=== PATIENT | female | born 1960 | race Caucasian/White ===

== ENCOUNTER 2022-07-03 18:09 | Inpatient (IN) | payer OTHER ==
[~2022-07-03] VITALS: Ht 170.2 cm; Wt 90.8 kg
[2022-07-03 21:00] VITALS: BP 96/49
[2022-07-03] MEDS ORDERED: ALBUTEROL SULFATE HFA 90 MCG/PUFF 8 GM INHALER IH PRN (21:45)
[2022-07-03] MEDS ORDERED: BENZONATATE 100 MG CAPSULE PO PRN (21:45)
[2022-07-03] MEDS: METOPROLOL TARTRATE 25 MG TABLET PO SCH ×2 (21:45→22:48)
[2022-07-03] MEDS ORDERED: INSULIN LISPRO 100 UNITS/ML SQ PRN (21:45)
[2022-07-03] MEDS ORDERED: DEXTROSE 50%-WATER 25 GM/50 ML SYRINGE IVP PRN (21:45)
[2022-07-03] MEDS ORDERED: SENNOSIDES 8.6 MG TABLET PO SCH (21:45)
[2022-07-03] MEDS ORDERED: MELATONIN 3 MG TABLET PO PRN (21:45)
[2022-07-03] MEDS ORDERED: ACETAMINOPHEN 325 MG TABLET PO PRN (21:45)
[2022-07-03] MEDS ORDERED: LUBIPROSTONE 8 MCG CAPSULE PO SCH (22:30)
[2022-07-03 22:40] VITALS: BP 97/67
[2022-07-03] MEDS: ETHYL ALCOHOL 62% ANTISEPTIC NASAL SANITIZER 0.6 ML AMPUL NASAL SCH (22:49)
[2022-07-03] MEDS: ATORVASTATIN CALCIUM 40 MG TABLET PO SCH (22:49)
[2022-07-03] MEDS: FUROSEMIDE 40 MG TABLET PO SCH (22:49)
[2022-07-03] MEDS: DOCUSATE SODIUM 100 MG CAPSULE PO SCH (22:49)
[2022-07-03] MEDS: BUDESONIDE/FORMOTEROL FUMARATE 80-4.5 MCG/PUFF 10.2 GM INHALER IH SCH (22:49)
[2022-07-03] MEDS: MELATONIN 5 MG TABLET PO SCH (23:37)
[2022-07-03 23:56] LABS: GLUCOMETER DEV NAME(LOC) 2WR.1C; GLUCOSE,POINT OF CARE 135 MG/DL (70-110)
[2022-07-04] MEDS ORDERED: LEVO125 PO (05:21)
[2022-07-04] MEDS ORDERED: METO25 PO (05:21)
[2022-07-04] MEDS ORDERED: CHOL500013 PO (05:21)
[2022-07-04] MEDS ORDERED: ALBU8HFA IH (05:21)
[2022-07-04] MEDS ORDERED: LUBI8CAP PO (05:21)
[2022-07-04] MEDS ORDERED: SPIR-37 PO (05:21)
[2022-07-04] MEDS ORDERED: DOCU-350 PO (05:21)
[2022-07-04] MEDS ORDERED: TURM500C4 PO (05:21)
[2022-07-04] MEDS ORDERED: ASPI-1450 PO (05:21)
[2022-07-04] MEDS ORDERED: MELA5TAB40 PO (05:21)
[2022-07-04] MEDS ORDERED: BENZ-70 PO (05:21)
[2022-07-04] MEDS ORDERED: DULO-113 PO (05:21)
[2022-07-04] MEDS ORDERED: LOVA20TA73 PO (05:21)
[2022-07-04] MEDS ORDERED: POTA8TAB71 PO (05:21)
[2022-07-04] MEDS ORDERED: FURO40 PO (05:21)
[2022-07-04] MEDS ORDERED: BUDE10.27 IH (05:21)
[2022-07-04] MEDS ORDERED: METF-1211 PO (05:21)
[2022-07-04] MEDS: LEVOTHYROXINE SODIUM 112 MCG TABLET PO SCH (06:34)
[2022-07-04 07:10] LABS: GLUCOMETER DEV NAME(LOC) 2WR.2B; GLUCOSE,POINT OF CARE 104 MG/DL (70-110)
[2022-07-04 07:15] LABS: BASOPHILS % (AUTO) 0.5 % (0.0-2.0); EOSINOPHILS % (AUTO) 3.9 % (1.0-6.0); HEMATOCRIT 34.6 % (36-46); LYMPHOCYTES # (AUTO) 2.1 K/uL (1.0-4.8); LYMPHOCYTES % (AUTO) 18.4 % (22.0-44.0); MEAN CORPUSCULAR HEMOGLOBIN 28.4 pg (26.0-34.0); MEAN CORPUSCULAR HGB CONC 31.9 G/dL (31.0-37.0); MEAN CORPUSCULAR VOLUME 89 fL (80-100); MONOCYTES # (AUTO) 0.8 K/uL (0.1-1.0); MONOCYTES % (AUTO) 7.6 % (2.0-9.0); NEUTROPHILS # (AUTO) 7.8 K/uL (1.8-7.7); NEUTROPHILS % (AUTO) 69.6 % (40.0-70.0); PLATELET COUNT (AUTO) 483 K/uL (150-450); RED BLOOD CELL COUNT(AUTO) 3.89 MIL/uL (4.00-5.20); RED CELL DISTRIBUTION WIDTH 15.9 % (11.5-14.5)
[2022-07-04 07:28] LABS: ALANINE AMINOTRANSFERASE 29 U/L (12-78); ALBUMIN 3.2 g/dL (3.4-5.0); ALKALINE PHOSPHATASE 99 U/L (46-116); ANION GAP 10 mmol/L (8-16); ASPARTATE AMINOTRANSFERASE 39 U/L (15-37); BILIRUBIN,TOTAL 0.4 mg/dL (0.1-1.0); CALCIUM, TOTAL 8.6 mg/dL (8.8-10.5); CARBON DIOXIDE 28 mmol/L (22-29); CHLORIDE 101 mmol/L (98-107); CREATININE 0.91 mg/dL (0.60-1.30); GLUCOSE,RANDOM 119 mg/dL (70-110); POTASSIUM 3.1 mmol/L (3.5-5.1); SODIUM SERUM 139 mmol/L (136-145); TOTAL PROTEIN, SERUM 7.9 g/dL (6.4-8.2); UREA NITROGEN, BLOOD 20 mg/dL (7-18)
[2022-07-04 07:30] LABS: GLOMERULAR FILTR. RATE CALC > 60 mL/min (>60)
[2022-07-04] MEDS ORDERED: LUBIPROSTONE 8 MCG CAPSULE PO SCH (07:30)
[2022-07-04 08:10] VITALS: BP 110/54
[2022-07-04] MEDS: ASPIRIN 81 MG CHEWABLE TABLET PO SCH (09:10)
[2022-07-04] MEDS: ETHYL ALCOHOL 62% ANTISEPTIC NASAL SANITIZER 0.6 ML AMPUL NASAL SCH ×2 (09:10→22:20)
[2022-07-04] MEDS: MetFORMIN HCL 500 MG TABLET PO SCH ×2 (09:10→17:21)
[2022-07-04] MEDS: BUDESONIDE/FORMOTEROL FUMARATE 80-4.5 MCG/PUFF 10.2 GM INHALER IH SCH ×2 (09:10→22:20)
[2022-07-04] MEDS: EMPAGLIFLOZIN 10 MG TABLET PO SCH (09:11)
[2022-07-04] MEDS: DOCUSATE SODIUM 100 MG CAPSULE PO SCH ×2 (09:11→21:00)
[2022-07-04] MEDS: DULoxetine HCL 60 MG CAPSULE PO SCH (09:11)
[2022-07-04] MEDS: FUROSEMIDE 40 MG TABLET PO SCH ×2 (09:12→22:24)
[2022-07-04] MEDS: POTASSIUM CHLORIDE 20 MEQ ER TABLET PO SCH (09:12)
[2022-07-04] MEDS: MULTIVITAMINS WITH MINERALS, THERAPEUTIC TABLET PO SCH (09:13)
[2022-07-04] MEDS: METOPROLOL TARTRATE 25 MG TABLET PO SCH ×3 (09:13→22:24)
[2022-07-04] MEDS: CLOPIDOGREL BISULFATE 75 MG TABLET PO SCH (09:13)
[2022-07-04] MEDS: CYANOCOBALAMIN 500 MCG TABLET PO SCH (09:14)
[2022-07-04] MEDS: PYRIDOXINE HCL 50 MG TABLET PO SCH (09:15)
[2022-07-04] MEDS: ASCORBIC ACID 500 MG TABLET PO SCH (09:15)
[2022-07-04] MEDS: ENOXAPARIN SODIUM 40 MG/0.4 ML PF SYRINGE SQ SCH (09:16)
[2022-07-04] MEDS: CHOLECALCIFEROL (VIT D3) 1,000 UNITS [25 MCG] TABLET PO SCH (09:16)
[2022-07-04] MEDS ORDERED: POTASSIUM CHLORIDE 20 MEQ ER TABLET PO ONE (10:15)
[2022-07-04 12:21] LABS: APPEARANCE,URINE CLEAR (CLEAR); BILIRUBIN,URINE NEGATIVE (NEGATIVE); GLUCOSE, URINE (UA) >=1000 mg/dL (NEGATIVE); KETONES,URINE NEGATIVE (NEGATIVE); LEUKOCYTE ESTERASE ,URINE NEGATIVE (NEGATIVE); NITRATE,URINE NEGATIVE (NEGATIVE); OCCULT BLOOD,URINE NEGATIVE (NEGATIVE); PROTEIN,URINE NEGATIVE (NEGATIVE); UROBILINOGEN,URINE <=1.0 mg/dL (<=1.0)
[2022-07-04 12:41] LABS: GLUCOMETER DEV NAME(LOC) 2WR.1C; GLUCOSE,POINT OF CARE 135 MG/DL (70-110)
[2022-07-04 12:42] LABS: BACTERIA,URINE None Seen /HPF (None Seen); RBC,URINE None Seen /HPF (0-2); WBC,URINE None Seen /HPF (0-5)
[2022-07-04 16:30] VITALS: BP 114/45
[2022-07-04] MEDS: LUBIPROSTONE 8 MCG CAPSULE PO SCH (17:22)
[2022-07-04 17:41] LABS: GLUCOMETER DEV NAME(LOC) 2WR.1C; GLUCOSE,POINT OF CARE 90 MG/DL (70-110)
[2022-07-04 19:00] VITALS: BP 91/41
[2022-07-04 21:00] VITALS: BP 119/66
[2022-07-04] MEDS ORDERED: MELATONIN 5 MG TABLET PO SCH (21:00)
[2022-07-04] MEDS: MELATONIN 5 MG TABLET PO SCH (22:20)
[2022-07-04] MEDS: ATORVASTATIN CALCIUM 40 MG TABLET PO SCH (22:21)
[2022-07-04 22:45] LABS: GLUCOMETER DEV NAME(LOC) 2WR.2B; GLUCOSE,POINT OF CARE 91 MG/DL (70-110)
[2022-07-05] MEDS: LEVOTHYROXINE SODIUM 112 MCG TABLET PO SCH (06:16)
[2022-07-05 06:26] LABS: GLUCOMETER DEV NAME(LOC) 2WR.2B; GLUCOSE,POINT OF CARE 87 MG/DL (70-110)
[2022-07-05 07:53] LABS: BASOPHILS % (AUTO) 0.9 % (0.0-2.0); EOSINOPHILS % (AUTO) 2.7 % (1.0-6.0); HEMOGLOBIN 10.5 g/dL (12.0-16.0); LYMPHOCYTES # (AUTO) 2.2 K/uL (1.0-4.8); LYMPHOCYTES % (AUTO) 24.2 % (22.0-44.0); MEAN CORPUSCULAR HEMOGLOBIN 29.2 pg (26.0-34.0); MEAN CORPUSCULAR HGB CONC 32.7 G/dL (31.0-37.0); MEAN CORPUSCULAR VOLUME 89 fL (80-100); MONOCYTES # (AUTO) 0.8 K/uL (0.1-1.0); MONOCYTES % (AUTO) 8.6 % (2.0-9.0); NEUTROPHILS # (AUTO) 5.9 K/uL (1.8-7.7); NEUTROPHILS % (AUTO) 63.6 % (40.0-70.0); PLATELET COUNT (AUTO) 477 K/uL (150-450); RED BLOOD CELL COUNT(AUTO) 3.58 MIL/uL (4.00-5.20); RED CELL DISTRIBUTION WIDTH 15.9 % (11.5-14.5)
[2022-07-05 08:01] LABS: CALCIUM, TOTAL 8.8 mg/dL (8.8-10.5); CREATININE 0.99 mg/dL (0.60-1.30); POTASSIUM 3.6 mmol/L (3.5-5.1)
[2022-07-05] MEDS: FUROSEMIDE 40 MG TABLET PO SCH ×3 (08:06→21:00)
[2022-07-05] MEDS: MetFORMIN HCL 500 MG TABLET PO SCH ×2 (08:07→17:03)
[2022-07-05] MEDS: ASPIRIN 81 MG CHEWABLE TABLET PO SCH (08:07)
[2022-07-05] MEDS: DULoxetine HCL 60 MG CAPSULE PO SCH (08:09)
[2022-07-05] MEDS: MULTIVITAMINS WITH MINERALS, THERAPEUTIC TABLET PO SCH (08:09)
[2022-07-05] MEDS: CYANOCOBALAMIN 500 MCG TABLET PO SCH (08:10)
[2022-07-05] MEDS: PYRIDOXINE HCL 50 MG TABLET PO SCH (08:10)
[2022-07-05] MEDS: CHOLECALCIFEROL (VIT D3) 1,000 UNITS [25 MCG] TABLET PO SCH (08:10)
[2022-07-05] MEDS: METOPROLOL TARTRATE 25 MG TABLET PO SCH ×4 (08:10→21:00)
[2022-07-05] MEDS: CLOPIDOGREL BISULFATE 75 MG TABLET PO SCH (08:11)
[2022-07-05] MEDS: ASCORBIC ACID 500 MG TABLET PO SCH (08:11)
[2022-07-05] MEDS: EMPAGLIFLOZIN 10 MG TABLET PO SCH (08:11)
[2022-07-05] MEDS: BUDESONIDE/FORMOTEROL FUMARATE 80-4.5 MCG/PUFF 10.2 GM INHALER IH SCH ×2 (08:12→23:35)
[2022-07-05] MEDS: ENOXAPARIN SODIUM 40 MG/0.4 ML PF SYRINGE SQ SCH (08:12)
[2022-07-05] MEDS: LUBIPROSTONE 8 MCG CAPSULE PO SCH ×2 (08:13→18:07)
[2022-07-05] MEDS: DOCUSATE SODIUM 100 MG CAPSULE PO SCH (08:25)
[2022-07-05] MEDS: POTASSIUM CHLORIDE 20 MEQ ER TABLET PO SCH (08:27)
[2022-07-05] MEDS: ETHYL ALCOHOL 62% ANTISEPTIC NASAL SANITIZER 0.6 ML AMPUL NASAL SCH ×2 (08:33→20:55)
[2022-07-05 10:19] VITALS: BP 104/53
[2022-07-05 13:06] LABS: GLUCOMETER DEV NAME(LOC) 2WR.2B; GLUCOSE,POINT OF CARE 108 MG/DL (70-110)
[2022-07-05 19:06] LABS: GLUCOMETER DEV NAME(LOC) 2WR.2B; GLUCOSE,POINT OF CARE 95 MG/DL (70-110)
[2022-07-05] MEDS: ATORVASTATIN CALCIUM 40 MG TABLET PO SCH (20:58)
[2022-07-05 22:00] VITALS: BP 95/51
[2022-07-05] MEDS: MELATONIN 5 MG TABLET PO SCH (22:03)
[2022-07-06 01:36] LABS: GLUCOMETER DEV NAME(LOC) 2WR.1C; GLUCOSE,POINT OF CARE 95 MG/DL (70-110)
[2022-07-06 06:56] LABS: GLUCOMETER DEV NAME(LOC) 2WR.1C; GLUCOSE,POINT OF CARE 99 MG/DL (70-110)
[2022-07-06] MEDS: LEVOTHYROXINE SODIUM 112 MCG TABLET PO SCH (07:54)
[2022-07-06 07:55] VITALS: BP 105/51
[2022-07-06] MEDS: MetFORMIN HCL 500 MG TABLET PO SCH ×2 (07:55→16:56)
[2022-07-06] MEDS: METOPROLOL TARTRATE 25 MG TABLET PO SCH ×3 (07:55→20:19)
[2022-07-06] MEDS: CHOLECALCIFEROL (VIT D3) 1,000 UNITS [25 MCG] TABLET PO SCH (07:56)
[2022-07-06] MEDS: MULTIVITAMINS WITH MINERALS, THERAPEUTIC TABLET PO SCH (07:56)
[2022-07-06] MEDS: POTASSIUM CHLORIDE 20 MEQ ER TABLET PO SCH (07:56)
[2022-07-06] MEDS: ASCORBIC ACID 500 MG TABLET PO SCH (07:57)
[2022-07-06] MEDS: EMPAGLIFLOZIN 10 MG TABLET PO SCH (07:57)
[2022-07-06] MEDS: CLOPIDOGREL BISULFATE 75 MG TABLET PO SCH (07:57)
[2022-07-06] MEDS: DULoxetine HCL 60 MG CAPSULE PO SCH (07:58)
[2022-07-06] MEDS: CYANOCOBALAMIN 500 MCG TABLET PO SCH (07:58)
[2022-07-06] MEDS: ASPIRIN 81 MG CHEWABLE TABLET PO SCH (07:58)
[2022-07-06] MEDS: FUROSEMIDE 40 MG TABLET PO SCH ×2 (07:58→21:00)
[2022-07-06] MEDS: ENOXAPARIN SODIUM 40 MG/0.4 ML PF SYRINGE SQ SCH (07:59)
[2022-07-06] MEDS: BUDESONIDE/FORMOTEROL FUMARATE 80-4.5 MCG/PUFF 10.2 GM INHALER IH SCH ×2 (07:59→20:14)
[2022-07-06] MEDS: LUBIPROSTONE 8 MCG CAPSULE PO SCH ×2 (07:59→16:56)
[2022-07-06 08:00] VITALS: BP 105/51
[2022-07-06] MEDS: ETHYL ALCOHOL 62% ANTISEPTIC NASAL SANITIZER 0.6 ML AMPUL NASAL SCH ×2 (08:19→20:14)
[2022-07-06] MEDS: PYRIDOXINE HCL 50 MG TABLET PO SCH (08:19)
[2022-07-06 14:36] LABS: GLUCOMETER DEV NAME(LOC) 2WR.2B; GLUCOSE,POINT OF CARE 134 MG/DL (70-110)
[2022-07-06 17:46] LABS: GLUCOMETER DEV NAME(LOC) 2WR.1C; GLUCOSE,POINT OF CARE 112 MG/DL (70-110)
[2022-07-06] MEDS: MELATONIN 5 MG TABLET PO SCH (20:18)
[2022-07-06] MEDS: ATORVASTATIN CALCIUM 40 MG TABLET PO SCH (20:18)
[2022-07-06 20:46] LABS: GLUCOMETER DEV NAME(LOC) 2WR.1C; GLUCOSE,POINT OF CARE 106 MG/DL (70-110)
[2022-07-06 20:58] VITALS: BP 89/48
[2022-07-06 21:00] VITALS: BP 112/53
[2022-07-07] MEDS: LEVOTHYROXINE SODIUM 112 MCG TABLET PO SCH (06:51)
[2022-07-07] MEDS: MetFORMIN HCL 500 MG TABLET PO SCH ×2 (08:41→16:40)
[2022-07-07] MEDS: ASPIRIN 81 MG CHEWABLE TABLET PO SCH (08:42)
[2022-07-07] MEDS: ETHYL ALCOHOL 62% ANTISEPTIC NASAL SANITIZER 0.6 ML AMPUL NASAL SCH ×2 (08:43→20:27)
[2022-07-07] MEDS: CHOLECALCIFEROL (VIT D3) 1,000 UNITS [25 MCG] TABLET PO SCH (08:44)
[2022-07-07 08:46] LABS: GLUCOMETER DEV NAME(LOC) 2WR.1C; GLUCOSE,POINT OF CARE 103 MG/DL (70-110)
[2022-07-07] MEDS: LUBIPROSTONE 8 MCG CAPSULE PO SCH ×2 (08:46→20:25)
[2022-07-07] MEDS: ASCORBIC ACID 500 MG TABLET PO SCH (08:46)
[2022-07-07] MEDS: MULTIVITAMINS WITH MINERALS, THERAPEUTIC TABLET PO SCH (08:47)
[2022-07-07] MEDS: POTASSIUM CHLORIDE 20 MEQ ER TABLET PO SCH (08:48)
[2022-07-07] MEDS: ENOXAPARIN SODIUM 40 MG/0.4 ML PF SYRINGE SQ SCH (08:49)
[2022-07-07] MEDS: CLOPIDOGREL BISULFATE 75 MG TABLET PO SCH (08:50)
[2022-07-07] MEDS: BUDESONIDE/FORMOTEROL FUMARATE 80-4.5 MCG/PUFF 10.2 GM INHALER IH SCH ×2 (08:52→20:26)
[2022-07-07] MEDS: METOPROLOL TARTRATE 25 MG TABLET PO SCH ×3 (09:00→20:27)
[2022-07-07] MEDS: FUROSEMIDE 40 MG TABLET PO SCH ×2 (09:00→16:43)
[2022-07-07 09:05] VITALS: BP 95/50
[2022-07-07] MEDS: DULoxetine HCL 60 MG CAPSULE PO SCH (09:56)
[2022-07-07] MEDS: EMPAGLIFLOZIN 10 MG TABLET PO SCH (09:56)
[2022-07-07] MEDS: CYANOCOBALAMIN 500 MCG TABLET PO SCH (09:56)
[2022-07-07] MEDS: PYRIDOXINE HCL 50 MG TABLET PO SCH (09:57)
[2022-07-07 12:11] LABS: GLUCOMETER DEV NAME(LOC) 2WR.2B; GLUCOSE,POINT OF CARE 140 MG/DL (70-110)
[2022-07-07 16:40] VITALS: BP 99/47
[2022-07-07 17:21] LABS: GLUCOMETER DEV NAME(LOC) 2WR.2B; GLUCOSE,POINT OF CARE 75 MG/DL (70-110)
[2022-07-07 20:18] VITALS: BP 104/52
[2022-07-07] MEDS: ATORVASTATIN CALCIUM 40 MG TABLET PO SCH (20:26)
[2022-07-07] MEDS: MELATONIN 5 MG TABLET PO SCH (20:27)
[2022-07-08 05:21] LABS: GLUCOMETER DEV NAME(LOC) 2WR.2B; GLUCOSE,POINT OF CARE 104 MG/DL (70-110)
[2022-07-08] MEDS: LEVOTHYROXINE SODIUM 112 MCG TABLET PO SCH (06:47)
[2022-07-08 07:02] LABS: GLUCOMETER DEV NAME(LOC) 2WR.2B; GLUCOSE,POINT OF CARE 98 MG/DL (70-110)
[2022-07-08] MEDS: MetFORMIN HCL 500 MG TABLET PO SCH ×2 (07:43→17:51)
[2022-07-08] MEDS: LUBIPROSTONE 8 MCG CAPSULE PO SCH ×2 (07:43→17:51)
[2022-07-08] MEDS: FUROSEMIDE 40 MG TABLET PO SCH ×2 (07:45→15:35)
[2022-07-08 08:44] VITALS: BP 118/58
[2022-07-08] MEDS: BUDESONIDE/FORMOTEROL FUMARATE 80-4.5 MCG/PUFF 10.2 GM INHALER IH SCH ×2 (09:01→21:02)
[2022-07-08] MEDS: ETHYL ALCOHOL 62% ANTISEPTIC NASAL SANITIZER 0.6 ML AMPUL NASAL SCH ×2 (09:02→21:03)
[2022-07-08] MEDS: ASPIRIN 81 MG CHEWABLE TABLET PO SCH (09:03)
[2022-07-08] MEDS: DULoxetine HCL 60 MG CAPSULE PO SCH (09:03)
[2022-07-08] MEDS: POTASSIUM CHLORIDE 20 MEQ ER TABLET PO SCH (09:04)
[2022-07-08] MEDS: EMPAGLIFLOZIN 10 MG TABLET PO SCH (09:04)
[2022-07-08] MEDS: MULTIVITAMINS WITH MINERALS, THERAPEUTIC TABLET PO SCH (09:05)
[2022-07-08] MEDS: METOPROLOL TARTRATE 25 MG TABLET PO SCH ×3 (09:05→21:13)
[2022-07-08] MEDS: CLOPIDOGREL BISULFATE 75 MG TABLET PO SCH (09:05)
[2022-07-08] MEDS: CYANOCOBALAMIN 500 MCG TABLET PO SCH (09:06)
[2022-07-08] MEDS: PYRIDOXINE HCL 50 MG TABLET PO SCH (09:07)
[2022-07-08] MEDS: ASCORBIC ACID 500 MG TABLET PO SCH (09:07)
[2022-07-08] MEDS: CHOLECALCIFEROL (VIT D3) 1,000 UNITS [25 MCG] TABLET PO SCH (09:08)
[2022-07-08] MEDS: ENOXAPARIN SODIUM 40 MG/0.4 ML PF SYRINGE SQ SCH (09:09)
[2022-07-08 11:56] LABS: GLUCOMETER DEV NAME(LOC) 2WR.1C; GLUCOSE,POINT OF CARE 104 MG/DL (70-110)
[2022-07-08 15:30] VITALS: BP 103/48
[2022-07-08 17:11] LABS: GLUCOMETER DEV NAME(LOC) 2WR.2B; GLUCOSE,POINT OF CARE 86 MG/DL (70-110)
[2022-07-08 21:00] VITALS: BP 107/51
[2022-07-08] MEDS: ATORVASTATIN CALCIUM 40 MG TABLET PO SCH (21:03)
[2022-07-08] MEDS: MELATONIN 5 MG TABLET PO SCH (21:10)
[2022-07-09 00:41] LABS: GLUCOMETER DEV NAME(LOC) 2WR.1C; GLUCOSE,POINT OF CARE 94 MG/DL (70-110)
[2022-07-09] MEDS: LEVOTHYROXINE SODIUM 112 MCG TABLET PO SCH (06:39)
[2022-07-09 06:51] LABS: GLUCOMETER DEV NAME(LOC) 2WR.1C; GLUCOSE,POINT OF CARE 92 MG/DL (70-110)
[2022-07-09 07:50] VITALS: BP 100/52
[2022-07-09 08:00] VITALS: BP 99/52
[2022-07-09] MEDS: DULoxetine HCL 60 MG CAPSULE PO SCH (08:12)
[2022-07-09] MEDS: LUBIPROSTONE 8 MCG CAPSULE PO SCH ×2 (08:12→16:58)
[2022-07-09] MEDS: MULTIVITAMINS WITH MINERALS, THERAPEUTIC TABLET PO SCH (08:13)
[2022-07-09] MEDS: POTASSIUM CHLORIDE 20 MEQ ER TABLET PO SCH (08:13)
[2022-07-09] MEDS: ASCORBIC ACID 500 MG TABLET PO SCH (08:14)
[2022-07-09] MEDS: ASPIRIN 81 MG CHEWABLE TABLET PO SCH (08:14)
[2022-07-09] MEDS: MetFORMIN HCL 500 MG TABLET PO SCH ×2 (08:14→16:58)
[2022-07-09] MEDS: FUROSEMIDE 40 MG TABLET PO SCH ×2 (08:15→16:58)
[2022-07-09] MEDS: EMPAGLIFLOZIN 10 MG TABLET PO SCH (08:16)
[2022-07-09] MEDS: PYRIDOXINE HCL 50 MG TABLET PO SCH (08:16)
[2022-07-09] MEDS: CYANOCOBALAMIN 500 MCG TABLET PO SCH (08:16)
[2022-07-09] MEDS: CHOLECALCIFEROL (VIT D3) 1,000 UNITS [25 MCG] TABLET PO SCH (08:17)
[2022-07-09] MEDS: ENOXAPARIN SODIUM 40 MG/0.4 ML PF SYRINGE SQ SCH (08:17)
[2022-07-09] MEDS: CLOPIDOGREL BISULFATE 75 MG TABLET PO SCH (08:17)
[2022-07-09] MEDS: ETHYL ALCOHOL 62% ANTISEPTIC NASAL SANITIZER 0.6 ML AMPUL NASAL SCH ×2 (08:17→20:35)
[2022-07-09] MEDS: BUDESONIDE/FORMOTEROL FUMARATE 80-4.5 MCG/PUFF 10.2 GM INHALER IH SCH ×2 (08:18→20:35)
[2022-07-09] MEDS: METOPROLOL TARTRATE 25 MG TABLET PO SCH ×3 (08:32→20:36)
[2022-07-09 16:34] VITALS: BP 108/56
[2022-07-09 17:27] LABS: GLUCOMETER DEV NAME(LOC) 2WR.2B; GLUCOSE,POINT OF CARE 118 MG/DL (70-110)
[2022-07-09 20:35] VITALS: BP 92/61
[2022-07-09] MEDS: ATORVASTATIN CALCIUM 40 MG TABLET PO SCH (20:36)
[2022-07-09] MEDS: OXYBUTYNIN CHLORIDE 5 MG ER TABLET PO SCH (20:36)
[2022-07-09] MEDS: MELATONIN 5 MG TABLET PO SCH (20:37)
[2022-07-10] MEDS ORDERED: ASCO500 PO (02:09)
[2022-07-10] MEDS ORDERED: EMPA10TA3 PO (02:09)
[2022-07-10] MEDS ORDERED: ATOR40TA28 PO (02:09)
[2022-07-10] MEDS ORDERED: CLOP75TA60 PO (02:09)
[2022-07-10 04:51] LABS: GLUCOMETER DEV NAME(LOC) 2WR.1C; GLUCOSE,POINT OF CARE 98 MG/DL (70-110)
[2022-07-10] MEDS ORDERED: CYAN-42 IM (05:35)
[2022-07-10] MEDS: LEVOTHYROXINE SODIUM 112 MCG TABLET PO SCH (06:02)
[2022-07-10 07:25] LABS: GLUCOMETER DEV NAME(LOC) 2WR.1C; GLUCOSE,POINT OF CARE 89 MG/DL (70-110)
[2022-07-10 08:03] VITALS: BP 97/52
[2022-07-10] MEDS: MULTIVITAMINS WITH MINERALS, THERAPEUTIC TABLET PO SCH (08:06)
[2022-07-10] MEDS: MetFORMIN HCL 500 MG TABLET PO SCH ×2 (08:06→16:42)
[2022-07-10] MEDS: CHOLECALCIFEROL (VIT D3) 1,000 UNITS [25 MCG] TABLET PO SCH (08:06)
[2022-07-10] MEDS: ASCORBIC ACID 500 MG TABLET PO SCH (08:06)
[2022-07-10] MEDS: ENOXAPARIN SODIUM 40 MG/0.4 ML PF SYRINGE SQ SCH (08:07)
[2022-07-10] MEDS: FUROSEMIDE 40 MG TABLET PO SCH ×2 (08:07→16:41)
[2022-07-10] MEDS: POTASSIUM CHLORIDE 20 MEQ ER TABLET PO SCH (08:07)
[2022-07-10] MEDS: ASPIRIN 81 MG CHEWABLE TABLET PO SCH (08:08)
[2022-07-10] MEDS: LUBIPROSTONE 8 MCG CAPSULE PO SCH ×2 (08:08→16:41)
[2022-07-10] MEDS: CLOPIDOGREL BISULFATE 75 MG TABLET PO SCH (08:08)
[2022-07-10] MEDS: BUDESONIDE/FORMOTEROL FUMARATE 80-4.5 MCG/PUFF 10.2 GM INHALER IH SCH ×2 (08:08→21:16)
[2022-07-10] MEDS: EMPAGLIFLOZIN 10 MG TABLET PO SCH (08:09)
[2022-07-10] MEDS: PYRIDOXINE HCL 50 MG TABLET PO SCH (08:09)
[2022-07-10] MEDS: DULoxetine HCL 60 MG CAPSULE PO SCH (08:09)
[2022-07-10] MEDS: CYANOCOBALAMIN 500 MCG TABLET PO SCH (08:09)
[2022-07-10] MEDS: METOPROLOL TARTRATE 25 MG TABLET PO SCH ×4 (08:10→21:16)
[2022-07-10] MEDS: ETHYL ALCOHOL 62% ANTISEPTIC NASAL SANITIZER 0.6 ML AMPUL NASAL SCH ×2 (08:10→21:15)
[2022-07-10 16:40] VITALS: BP 102/53
[2022-07-10 17:21] LABS: GLUCOMETER DEV NAME(LOC) 2WR.1C; GLUCOSE,POINT OF CARE 86 MG/DL (70-110)
[2022-07-10 20:20] VITALS: BP 102/54
[2022-07-10 20:22] LABS: APPEARANCE,URINE CLEAR (CLEAR); BILIRUBIN,URINE NEGATIVE (NEGATIVE); GLUCOSE, URINE (UA) 300-500 mg/dL (NEGATIVE); KETONES,URINE NEGATIVE (NEGATIVE); LEUKOCYTE ESTERASE ,URINE TRACE (NEGATIVE); NITRATE,URINE NEGATIVE (NEGATIVE); OCCULT BLOOD,URINE NEGATIVE (NEGATIVE); PH,URINE 5.5 (5.0-8.0); PROTEIN,URINE NEGATIVE (NEGATIVE); SPECIFIC GRAVITIY, URINE 1.008 (1.003-1.030); UROBILINOGEN,URINE <=1.0 mg/dL (<=1.0)
[2022-07-10 20:30] LABS: BACTERIA,URINE Many /HPF (None Seen); RBC,URINE 0-2 /HPF (0-2); SQUAMOUS EPITHELIAL CELL,UR Few /LPF (None Seen)
[2022-07-10 21:00] VITALS: BP 88/52
[2022-07-10] MEDS: OXYBUTYNIN CHLORIDE 5 MG ER TABLET PO SCH (21:16)
[2022-07-10] MEDS: ATORVASTATIN CALCIUM 40 MG TABLET PO SCH (21:16)
[2022-07-10] MEDS: MELATONIN 5 MG TABLET PO SCH (21:16)
[2022-07-11] MEDS: LEVOTHYROXINE SODIUM 112 MCG TABLET PO SCH (06:39)
[2022-07-11 06:56] LABS: GLUCOMETER DEV NAME(LOC) 2WR.1C; GLUCOSE,POINT OF CARE 92 MG/DL (70-110)
[2022-07-11] MEDS: LUBIPROSTONE 8 MCG CAPSULE PO SCH ×2 (07:51→16:24)
[2022-07-11] MEDS: ETHYL ALCOHOL 62% ANTISEPTIC NASAL SANITIZER 0.6 ML AMPUL NASAL SCH ×2 (07:51→20:27)
[2022-07-11] MEDS: CHOLECALCIFEROL (VIT D3) 1,000 UNITS [25 MCG] TABLET PO SCH (07:52)
[2022-07-11] MEDS: DULoxetine HCL 60 MG CAPSULE PO SCH (07:52)
[2022-07-11] MEDS: BUDESONIDE/FORMOTEROL FUMARATE 80-4.5 MCG/PUFF 10.2 GM INHALER IH SCH ×2 (07:52→20:27)
[2022-07-11] MEDS: CYANOCOBALAMIN 500 MCG TABLET PO SCH (07:52)
[2022-07-11] MEDS: EMPAGLIFLOZIN 10 MG TABLET PO SCH (07:53)
[2022-07-11] MEDS: PYRIDOXINE HCL 50 MG TABLET PO SCH (07:53)
[2022-07-11] MEDS: ENOXAPARIN SODIUM 40 MG/0.4 ML PF SYRINGE SQ SCH (07:53)
[2022-07-11] MEDS: MetFORMIN HCL 500 MG TABLET PO SCH ×2 (07:54→16:24)
[2022-07-11] MEDS: ASPIRIN 81 MG CHEWABLE TABLET PO SCH (07:57)
[2022-07-11] MEDS: MULTIVITAMINS WITH MINERALS, THERAPEUTIC TABLET PO SCH (07:58)
[2022-07-11] MEDS: POTASSIUM CHLORIDE 20 MEQ ER TABLET PO SCH (07:58)
[2022-07-11] MEDS: CLOPIDOGREL BISULFATE 75 MG TABLET PO SCH (07:58)
[2022-07-11] MEDS: ASCORBIC ACID 500 MG TABLET PO SCH (07:58)
[2022-07-11 08:00] VITALS: BP 112/61
[2022-07-11] MEDS: METOPROLOL TARTRATE 25 MG TABLET PO SCH ×3 (08:00→20:28)
[2022-07-11] MEDS: FUROSEMIDE 40 MG TABLET PO SCH ×2 (08:00→16:24)
[2022-07-11 16:22] VITALS: BP 121/73
[2022-07-11 17:01] LABS: GLUCOMETER DEV NAME(LOC) 2WR.2B; GLUCOSE,POINT OF CARE 102 MG/DL (70-110)
[2022-07-11 20:27] VITALS: BP 107/54
[2022-07-11] MEDS: ATORVASTATIN CALCIUM 40 MG TABLET PO SCH (20:28)
[2022-07-11] MEDS: OXYBUTYNIN CHLORIDE 5 MG ER TABLET PO SCH (20:28)
[2022-07-11] MEDS: MELATONIN 5 MG TABLET PO SCH (20:29)
[2022-07-11] MEDS ORDERED: CHOL25TA4 PO (23:51)
[2022-07-11] MEDS ORDERED: PYRI-6 PO (23:51)
[2022-07-11] MEDS ORDERED: OXYB-34 PO (23:51)
[2022-07-11] MEDS ORDERED: CYAN500T56 PO (23:51)
[2022-07-11] MEDS ORDERED: POTA-206 PO (23:51)
[2022-07-11] MEDS ORDERED: MULT-248 PO (23:51)
[2022-07-12] MEDS: LEVOTHYROXINE SODIUM 112 MCG TABLET PO SCH (06:11)
[2022-07-12 07:11] LABS: GLUCOMETER DEV NAME(LOC) 2WR.2B; GLUCOSE,POINT OF CARE 108 MG/DL (70-110)
[2022-07-12] MEDS: LUBIPROSTONE 8 MCG CAPSULE PO SCH (08:03)
[2022-07-12] MEDS: MetFORMIN HCL 500 MG TABLET PO SCH (08:04)
[2022-07-12] MEDS: ASPIRIN 81 MG CHEWABLE TABLET PO SCH (08:06)
[2022-07-12] MEDS: MULTIVITAMINS WITH MINERALS, THERAPEUTIC TABLET PO SCH (08:07)
[2022-07-12] MEDS: CLOPIDOGREL BISULFATE 75 MG TABLET PO SCH (08:07)
[2022-07-12] MEDS: ENOXAPARIN SODIUM 40 MG/0.4 ML PF SYRINGE SQ SCH (08:07)
[2022-07-12] MEDS: ETHYL ALCOHOL 62% ANTISEPTIC NASAL SANITIZER 0.6 ML AMPUL NASAL SCH (08:07)
[2022-07-12] MEDS: FUROSEMIDE 40 MG TABLET PO SCH (08:08)
[2022-07-12] MEDS: CHOLECALCIFEROL (VIT D3) 1,000 UNITS [25 MCG] TABLET PO SCH (08:08)
[2022-07-12] MEDS: POTASSIUM CHLORIDE 20 MEQ ER TABLET PO SCH (08:08)
[2022-07-12] MEDS: ASCORBIC ACID 500 MG TABLET PO SCH (08:08)
[2022-07-12] MEDS: PYRIDOXINE HCL 50 MG TABLET PO SCH (08:09)
[2022-07-12] MEDS: EMPAGLIFLOZIN 10 MG TABLET PO SCH (08:09)
[2022-07-12] MEDS: CYANOCOBALAMIN 500 MCG TABLET PO SCH (08:09)
[2022-07-12] MEDS: BUDESONIDE/FORMOTEROL FUMARATE 80-4.5 MCG/PUFF 10.2 GM INHALER IH SCH (08:10)
[2022-07-12] MEDS: DULoxetine HCL 60 MG CAPSULE PO SCH (08:10)
[2022-07-12] MEDS: METOPROLOL TARTRATE 25 MG TABLET PO SCH (08:22)
[2022-07-12] MEDS ORDERED: ALBU8HFA IH (10:06)
[2022-07-12] MEDS ORDERED: BUDE10.27 IH (10:06)
[2022-07-12] MEDS ORDERED: CYAN500T56 PO (10:06)
[2022-07-12] MEDS ORDERED: METO25 PO (10:06)
[2022-07-12] MEDS ORDERED: POTA-206 PO (10:06)
[2022-07-12] MEDS ORDERED: OXYB-34 PO (10:06)
[2022-07-12] MEDS ORDERED: CLOP75TA60 PO (10:06)
[2022-07-12] MEDS ORDERED: METF-1211 PO (10:06)
[2022-07-12] MEDS ORDERED: INSU100V SQ (10:06)
[2022-07-12] MEDS ORDERED: DULO-113 PO (10:06)
[2022-07-12] MEDS ORDERED: LUBI8CAP PO (10:06)
[2022-07-12] MEDS ORDERED: ATOR40TA71 PO (10:06)
[2022-07-12] MEDS ORDERED: MULT-1239 PO (10:06)
[2022-07-12] MEDS ORDERED: ASCO500 PO (10:06)
[2022-07-12] MEDS ORDERED: Levothyroxine Sodium PO (10:06)
[2022-07-12] MEDS ORDERED: PYRI-13 PO (10:06)
[2022-07-12] MEDS ORDERED: CHOL25TA4 PO (10:06)
[2022-07-12] MEDS ORDERED: ASPI81 PO (10:06)
[2022-07-12] MEDS ORDERED: EMPA10TA3 PO (10:06)
[2022-07-12] MEDS ORDERED: FURO40 PO (10:06)
[2022-07-12 12:46] VITALS: BP 94/45
== END 2022-07-12 16:45 | disposition home health service (06) | DRG 65 ==
LOC: 2WR 20:33
PROVIDERS: ADMIT Physical Medicine & Rehabilitation; ATTEND Physical Medicine & Rehabilitation
DX: I63.411 Cerebral infarction due to embolism of right middle cerebral artery (principal); E46 Unspecified protein-calorie malnutrition; I50.42 Chronic combined systolic (congestive) and diastolic (congestive) heart failure; R41.4 Neurologic neglect syndrome; I44.2 Atrioventricular block, complete; I47.1 Supraventricular tachycardia; G81.94 Hemiplegia, unspecified affecting left nondominant side; I65.23 Occlusion and stenosis of bilateral carotid arteries; I48.0 Paroxysmal atrial fibrillation; E03.9 Hypothyroidism, unspecified; E11.42 Type 2 diabetes mellitus with diabetic polyneuropathy; E78.5 Hyperlipidemia, unspecified; E87.6 Hypokalemia; I08.0 Rheumatic disorders of both mitral and aortic valves; I11.0 Hypertensive heart disease with heart failure; S61.219A Laceration without foreign body of unspecified finger without damage to nail, initial encounter; J44.9 Chronic obstructive pulmonary disease, unspecified; K22.70 Barrett's esophagus without dysplasia; R32 Unspecified urinary incontinence; D64.9 Anemia, unspecified; R06.02 Shortness of breath; R06.2 Wheezing; R41.89 Other symptoms and signs involving cognitive functions and awareness; R15.9 Full incontinence of feces; Z79.01 Long term (current) use of anticoagulants; Z79.51 Long term (current) use of inhaled steroids; Z79.84 Long term (current) use of oral hypoglycemic drugs; Z80.3 Family history of malignant neoplasm of breast; Z82.49 Family history of ischemic heart disease and other diseases of the circulatory system; Z83.3 Family history of diabetes mellitus; Z85.71 Personal history of Hodgkin lymphoma; Z91.14 Patient's other noncompliance with medication regimen; Z91.199 Patient's noncompliance with other medical treatment and regimen due to unspecified reason; Z95.0 Presence of cardiac pacemaker; Z95.2 Presence of prosthetic heart valve; W45.8XXA Other foreign body or object entering through skin, initial encounter; Y93.89 Activity, other specified; Y92.89 Other specified places as the place of occurrence of the external cause; Y99.8 Other external cause status; Z79.899 Other long term (current) drug therapy; Z79.82 Long term (current) use of aspirin; Z85.850 Personal history of malignant neoplasm of thyroid; Z85.810 Personal history of malignant neoplasm of tongue; Z85.038 Personal history of other malignant neoplasm of large intestine; Z85.3 Personal history of malignant neoplasm of breast; Z68.31 Body mass index [BMI] 31.0-31.9, adult
CPT/HCPCS: 71046; 80048; 80053; 81001; 82962; 85025; 87081; 87086; 87186; 92507; 92523; 93970; 97110; 97112; 97116; 97150; 97162; 97166; 97530; 97535; 99366; J1650; Q9967; 36415-L1; 36415-TC